=== PATIENT | female | born 1985 | race Asian ===

== ENCOUNTER 2016-08-13 19:49 | Emergency (ER) | payer OTHER ==
[~2016-08-13] VITALS: Ht 170.2 cm; Wt 84.2 kg
[~2016-08-13 19:49] MED LIST: CHOL500014 PO; DOCU-30 PO; HYDR-3240 PO; IBUP-1222 PO; METO25TA35 PO; PREN1TAB60 PO
[2016-08-13 19:53] VITALS: BP 136/89
[2016-08-13] MEDS ORDERED: LIDOCAINE 1%, 20ML ONE (20:07)
[2016-08-13] MEDS ORDERED: LIDOCAINE 1%-EPI 1:100K, 20ML SQ ONE (20:30)
== END 2016-08-13 21:51 | disposition home or self-care (01) ==
LOC: ED 21:30
DX: S91.311A Laceration without foreign body, right foot, initial encounter (principal); S96.821A Laceration of other specified muscles and tendons at ankle and foot level, right foot, initial encounter; W08.XXXA Fall from other furniture, initial encounter; Y93.89 Activity, other specified; Y92.099 Unspecified place in other non-institutional residence as the place of occurrence of the external cause; Y99.8 Other external cause status
CPT/HCPCS: 12001

== ENCOUNTER 2016-08-20 11:17 | Day surgery (SDC) | payer OTHER ==
[~2016-08-20] VITALS: Ht 170.2 cm; Wt 90.0 kg
[2016-08-20 11:47] VITALS: BP 113/74
[2016-08-20] MEDS ORDERED: LACTATED RINGERS 1,000 ML IV SCH (11:57)
[2016-08-20] MEDS ORDERED: IBUP800T PO (12:01)
[2016-08-20 12:12] LABS: HCG UR OBC PASS
[2016-08-20] MEDS ORDERED: MIDAZOLAM 1 MG/ML, 2ML ONE (13:16)
[2016-08-20] MEDS ORDERED: FENTANYL PF 100 MCG/2ML ONE (13:16)
[2016-08-20] MEDS ORDERED: LIDOCAINE/PF 1%, 30ML ONE (13:17)
[2016-08-20] MEDS ORDERED: LIDOCAINE-MPF 2% ,5ML ONE (13:17)
[2016-08-20] MEDS ORDERED: BUPIVACAINE/PF-EPI 0.25% 1:200K ONE (13:22)
[2016-08-20] MEDS ORDERED: BACITRACIN 50,000 UNIT ONE (13:23)
[2016-08-20] MEDS ORDERED: METOPROLOL 1 MG/ML, 5ML ONE (13:43)
[2016-08-20] MEDS ORDERED: CEFAZOLIN 1,000 MG ONE (13:43)
[2016-08-20] MEDS ORDERED: PROPOFOL 10 MG/ML, 50ML ONE (13:43)
[2016-08-20] MEDS ORDERED: ACETAMINOPHEN 325 MG TABLET PO PRN (15:00)
[2016-08-20] MEDS ORDERED: HYDROcodone/APAP 7.5-325MG/15ML UDC PO PRN (15:00)
[2016-08-20] MEDS ORDERED: METOPROLOL 1 MG/ML, 5ML IV PRN (15:00)
[2016-08-20] MEDS ORDERED: HYDROmorphone 1 MG/ML, 1ML IV PRN (15:00)
[2016-08-20] MEDS ORDERED: FENTANYL PF 100 MCG/2ML IV PRN (15:00)
[2016-08-20] MEDS ORDERED: KETOROLAC 30 MG/1 ML IV PRN (15:00)
[2016-08-20] MEDS ORDERED: PROMETHAZINE 25 MG/ML, 1ML IV PRN (15:00)
[2016-08-20] MEDS ORDERED: HYDROcodone/APAP 10/325 MG TABLET ONE (15:57)
[2016-08-20] MEDS ORDERED: HYDROcodone/APAP 10/325 MG TABLET PO PRN (16:30)
== END 2016-08-20 16:20 | disposition home or self-care (01) ==
LOC: OUT 11:17
PROVIDERS: ATTEND Orthopaedic Surgery
DX: S96.121A Laceration of muscle and tendon of long extensor muscle of toe at ankle and foot level, right foot, initial encounter (principal); W26.0XXA Contact with knife, initial encounter; Y93.G3 Activity, cooking and baking; Y92.9 Unspecified place or not applicable; Y99.9 Unspecified external cause status; Z87.891 Personal history of nicotine dependence; Z72.89 Other problems related to lifestyle; Z82.49 Family history of ischemic heart disease and other diseases of the circulatory system
CPT/HCPCS: 28208; 81025; 93005; J0690; J2250; J2704; J3010; J3490; J7120

== ENCOUNTER 2017-08-27 12:34 | Emergency (ER) | payer OTHER ==
[~2017-08-27] VITALS: Ht 170.2 cm; Wt 84.5 kg
[~2017-08-27 12:34] MED LIST changes: -CHOL500014 PO; +CHOL500045 PO; +DOCU-131 PO; -DOCU-30 PO; +IBUP-1223 PO
[2017-08-27] MEDS ORDERED: CYCL-259 PO (13:10)
[2017-08-27] MEDS ORDERED: HYDR-3307 PO (13:11)
[2017-08-27] MEDS ORDERED: CEPH-368 PO (13:11)
[2017-08-27] MEDS ORDERED: KETOROLAC 30 MG/1 ML IVPush ONE (13:30)
[2017-08-27] MEDS ORDERED: SODIUM CHLORIDE FLUSH 10ML SYR IVF ONE (13:30)
[2017-08-27] MEDS ORDERED: SODIUM CHLORIDE 0.9% 1,000ML IVBOLUS ONE (13:30)
[2017-08-27 13:31] LABS: BASOPHILS # (AUTO) 0.06 x10^3/uL (0-0.1); BASOPHILS % (AUTO) 1 % (0-1); EOSINOPHILS # (AUTO) 0.32 x10^3/uL (0-0.4); EOSINOPHILS % (AUTO) 3 % (1-7); LYMPHOCYTES # (AUTO) 2.42 x10^3/uL (1-3.4); LYMPHOCYTES % (AUTO) 26 % (22-44); MD NO; MEAN PLATELET VOLUME 7.8 fL (7.4-10.4); MONOCYTES # (AUTO) 0.65 x10^3/uL (0.2-0.8); MONOCYTES % (AUTO) 7 % (2-9); NEUTROPHILS # (AUTO) 5.93 x10^3/uL (1.8-6.8); NEUTROPHILS % (AUTO) 63 % (42-75); PLATELET COUNT 325 x10^3/uL (130-400); RED BLOOD COUNT 3.95 x10^6/uL (3.82-5.3); RED CELL DISTRIBUTION WIDTH 12.5 % (9.6-15.2)
[2017-08-27] MEDS ORDERED: KETOROLAC 30 MG/1 ML ONE (13:31)
[2017-08-27 13:43] LABS: ALBUMIN 3.3 g/dL (3.4-5.0); ANION GAP 6 mmol/L (5-15); CALCIUM 8.2 mg/dL (8.5-10.1); CHLORIDE 104 mmol/L (98-107); CREATININE 0.61 mg/dL (0.55-1.02)
[2017-08-27] MEDS ORDERED: SIMETHICONE 125 MG CHEW TAB PO PRN (14:30)
[2017-08-27 14:32] VITALS: BP 133/96
== END 2017-08-27 15:56 | disposition home or self-care (01) ==
LOC: ED 15:45
DX: I80.9 Phlebitis and thrombophlebitis of unspecified site (principal); M79.631 Pain in right forearm; M25.521 Pain in right elbow
CPT/HCPCS: 36415; 80048; 82040; 85025; 93005; 93971; 96361; 96374; 99285; J1885; J7030

== ENCOUNTER 2018-02-20 22:43 | Inpatient (IN) | payer OTHER ==
[~2018-02-20] VITALS: Ht 170.2 cm; Wt 80.1 kg
[~2018-02-20 22:43] MED LIST changes: +CEPH-368 PO; +CYCL-259 PO; +HYDR-3307 PO
[2018-02-20] MEDS ORDERED: MAALOX/HYOSCYAMINE/LIDOCAINE 45 ML BTL ONE (23:25)
[2018-02-20] MEDS ORDERED: SODIUM CHLORIDE FLUSH 10ML SYR IVF ONE (23:30)
[2018-02-20] MEDS ORDERED: MAALOX/HYOSCYAMINE/LIDOCAINE 45 ML BTL PO ONE (23:30)
[2018-02-20] MEDS ORDERED: MORPHINE SULFATE 4 MG/ML, 1ML IVPush PRN (23:30)
[2018-02-20] MEDS ORDERED: FAMOTIDINE 20 MG/2 ML IVP ONE (23:30)
[2018-02-20] MEDS ORDERED: METOCLOPRAMIDE 5 MG/ML, 2ML IVPush ONE (23:30)
[2018-02-20 23:48] LABS: BASOPHILS # (AUTO) 0.04 x10^3/uL (0-0.1); BASOPHILS % (AUTO) 0 % (0-1); EOSINOPHILS # (AUTO) 0.18 x10^3/uL (0-0.4); EOSINOPHILS % (AUTO) 2 % (1-7); LYMPHOCYTES # (AUTO) 2.76 x10^3/uL (1-3.4); LYMPHOCYTES % (AUTO) 25 % (22-44); MD NO; MEAN CORPUSCULAR HEMOGLOBIN 32.5 pg (27.0-34.8); MEAN CORPUSCULAR HGB CONC 33.9 g/dL (32.4-35.8); MEAN CORPUSCULAR VOLUME 95.8 fL (80-100); MEAN PLATELET VOLUME 8.1 fL (7.4-10.4); MONOCYTES # (AUTO) 0.67 x10^3/uL (0.2-0.8); MONOCYTES % (AUTO) 6 % (2-9); NEUTROPHILS # (AUTO) 7.22 x10^3/uL (1.8-6.8); NEUTROPHILS % (AUTO) 66 % (42-75); PLATELET COUNT 325 x10^3/uL (130-400); RED BLOOD COUNT 4.15 x10^6/uL (3.82-5.3)
[2018-02-20] MEDS ORDERED: FAMOTIDINE 20 MG/2 ML ONE (23:49)
[2018-02-20] MEDS ORDERED: METOCLOPRAMIDE 5 MG/ML, 2ML ONE (23:49)
[2018-02-20] MEDS ORDERED: MORPHINE SULFATE 4 MG/ML, 1ML ONE (23:49)
[2018-02-20 23:58] LABS: ALANINE AMINOTRANSFERASE 16 U/L (12-78); ANION GAP 10 mmol/L (5-15); CALCIUM 9.3 mg/dL (8.5-10.1); CHLORIDE 110 mmol/L (98-107); CREATININE 0.64 mg/dL (0.55-1.02)
[2018-02-21] LABS: ALKALINE PHOSPHATASE 56 U/L (45-117); BILIRUBIN,TOTAL 0.3 mg/dL (0.2-1.0); TOTAL PROTEIN 7.6 g/dL (6.4-8.2)
[2018-02-21] MEDS ORDERED: MORPHINE SULFATE 4 MG/ML, 1ML ONE (00:25)
[2018-02-21] MEDS ORDERED: SODIUM CHLORIDE 0.9% 1,000ML IVBOLUS ONE (00:30)
[2018-02-21 01:04] LABS: CULTURE INDICATED? NO; HCG UR SG 1.027 (1.003-1.030); MICROSCOPIC NOT IND
[2018-02-21 06:28] VITALS: BP 109/72
[2018-02-21] MEDS ORDERED: HYDROmorphone 2 MG/ML, 1ML IV PRN ×2 (08:00→12:00)
[2018-02-21] MEDS ORDERED: SODIUM CHLORIDE 0.9% 1,000 ML IV SCH (08:00)
[2018-02-21] MEDS ORDERED: ONDANSETRON 2MG/ML, 2ML IVPush PRN (08:00)
[2018-02-21 08:02] VITALS: BP 94/51
[2018-02-21] MEDS ORDERED: BUPIVACAINE/PF-EPI 0.5% 1:200K ONE (10:11)
[2018-02-21] MEDS ORDERED: SCOPOLAMINE PATCH, 1.5MG PATCH.TD72 TD ONE (10:49)
[2018-02-21] MEDS ORDERED: KETOROLAC 30 MG/1 ML ONE (10:57)
[2018-02-21] MEDS ORDERED: PROPOFOL 10 MG/ML, 50ML ONE (10:57)
[2018-02-21] MEDS ORDERED: BUPIVACAINE/PF-EPI 0.5% 1:200K INFIL ONE (11:20)
[2018-02-21] MEDS ORDERED: FENTANYL PF 100 MCG/2ML ONE (11:56)
[2018-02-21] MEDS ORDERED: PROCHLORPERAZINE 5 MG/ML, 2ML ONE (11:56)
[2018-02-21] MEDS ORDERED: DEXAMETHASONE 4 MG/ML, 1ML ONE (11:58)
[2018-02-21] MEDS ORDERED: PROPOFOL 10 MG/ML, 20ML ONE (11:58)
[2018-02-21] MEDS ORDERED: ONDANSETRON 2MG/ML, 2ML ONE (11:58)
[2018-02-21] MEDS ORDERED: NEOSTIGMINE 1 MG/ML, 10ML ONE (11:58)
[2018-02-21] MEDS ORDERED: FENTANYL PF 250 MCG/5ML ONE (11:58)
[2018-02-21] MEDS ORDERED: GLYCOPYRROLATE 0.2MG/1ML, 5ML ONE (11:58)
[2018-02-21] MEDS ORDERED: ROCURONIUM 10MG/ML,5ML ONE (11:58)
[2018-02-21] MEDS ORDERED: SUCCINYLCHOLINE 20 MG/ML, 10ML ONE (11:58)
[2018-02-21] MEDS ORDERED: CEFAZOLIN 1,000 MG ONE (11:58)
[2018-02-21] MEDS ORDERED: OXYcodone 5 MG/5 ML ORAL.SOL UDC PO PRN (12:00)
[2018-02-21] MEDS ORDERED: HYDROcodone/APAP 5/325 TABLET PO PRN (12:00)
[2018-02-21] MEDS ORDERED: hydrALAzine 20 MG/ML, 1ML IV PRN (12:00)
[2018-02-21] MEDS ORDERED: PROCHLORPERAZINE 5 MG/ML, 2ML IM PRN (12:00)
[2018-02-21] MEDS ORDERED: LABETALOL 5MG/ML, 20ML IV PRN (12:00)
[2018-02-21] MEDS ORDERED: DIPHENHYDRAMINE 50 MG/ML, 1ML IM PRN (12:00)
[2018-02-21] MEDS ORDERED: HYDROmorphone 2 MG/ML, 1ML IVPush PRN (12:00)
[2018-02-21] MEDS ORDERED: OXYcodone IR 5MG TABLET PO PRN (12:00)
[2018-02-21] MEDS: FENTANYL PF 100 MCG/2ML IV PRN ×3 (12:10→12:35)
[2018-02-21] MEDS ORDERED: ACETAMINOPHEN 650 MG/20.3 ML UDC ONE (12:47)
[2018-02-21] MEDS ORDERED: ACETAMINOPHEN 325 MG TABLET PO PRN (13:00)
[2018-02-21 13:15] VITALS: BP 123/87
[2018-02-21] MEDS ORDERED: OXYC5CAP2 PO (15:18)
[2018-02-21 17:14] VITALS: BP 110/77
== END 2018-02-21 19:22 | disposition home or self-care (01) | DRG 419 ==
LOC: ED 23:59 → EDIP 02-21 02:23 → 4NOR 02-21 03:02
PROVIDERS: ADMIT Thoracic Surgery (Cardiothoracic Vascular Surgery); ATTEND Thoracic Surgery (Cardiothoracic Vascular Surgery)
PROC: 0FT44ZZ Resection of Gallbladder, Percutaneous Endoscopic Approach (ICD-10-PCS; principal; 2018-02-21 11:00)
DX: K80.00 Calculus of gallbladder with acute cholecystitis without obstruction (principal); K21.9 Gastro-esophageal reflux disease without esophagitis; I45.81 Long QT syndrome; Z87.11 Personal history of peptic ulcer disease
CPT/HCPCS: 36415; J3490; S0028; 71046; 76700; 80053; 81003; 81025; 83690; 85025; 88304; 93005; 96361; 96374; 96375; G0378; J0690; J1100; J1170; J1885; J2405; J2704; J2710; J3010; J0330; J2765; J7030